=== PATIENT | male | born 1940 | race Caucasian/White ===

== ENCOUNTER 2021-09-24 10:47 | Emergency (ER) | payer MEDICARE ==
[~2021-09-24] VITALS: Ht 185.4 cm; Wt 97.5 kg
[~2021-09-24 10:47] MED LIST: CEPHALEXIN500 MG PO; CHOLESTYRAMINE P4 GM PO; NORCO 5-325 TA1 EACH PO; PRILOSEC20 MG PO
--- NOTE | 2021-09-25 13:06 | EKG ---
[facility] [address] [facility] [place], [place] [address] Signed Sinus rhythm with premature atrial complexes in a pattern of bigeminy Otherwise normal ECG No previous ECGs available Confirmed by KAVON MIRANDA MD ([id number] on 09/25/2021 1:06:46 PM Electronically Signed By: KAVON MIRANDA MD 09/25/21 1306 PATIENT NAME: SRIDEVI VINCENT GABRIELA Electrocardiogram DATE OF : 40 PHYSICIAN: KAVON MIRANDA MD REPORT #: [id number] REPORT IS CONFIDENTIAL AND NOT TO BE RELEASED WITHOUT AUTHORIZATION
== END 2021-09-24 13:52 | disposition home or self-care (01) ==
LOC: ED 10:47
DX: R55 Syncope and collapse (principal); Z88.6 Allergy status to analgesic agent; Z88.8 Allergy status to other drugs, medicaments and biological substances; Z79.899 Other long term (current) drug therapy
CPT/HCPCS: 80053; 83735; 84484; 85025; 93005; 93010; 99284-25

== ENCOUNTER 2023-12-22 10:00 | Day surgery (SDC) | payer MEDICARE ==
[~2023-12-22] VITALS: Ht 185.4 cm; Wt 90.9 kg
[~2023-12-22 10:00] MED LIST changes: +CEFAZOLIN SODIUM 2 GM/20 ML SYR IV SCH; +CLOPIDOGREL75 MG PO; +FLUDROCORTISON0.1 MG PO; +IBLOOD GLUCOSE TEST STRIP 1 EA TEST VI PRN; +LACTATED RINGER'S 1,000 ML IV SCH; +LIDOCAINE HCL 1% 5 ML SDV INJ ONE; +LIDOCAINE HCL 2% 5 ML SDV ONE; +LIPITOR80 MG PO; +NITROSTAT0.3 MG SL; +propofoL 200 MG/20 ML VIAL ONE
[2023-12-22] MEDS ORDERED: IBLOOD GLUCOSE TEST STRIP 1 EA TEST VI PRN (10:15)
[2023-12-22] MEDS ORDERED: NALOXONE HCL 0.4 MG SYR IV PRN (10:15)
[2023-12-22 10:20] VITALS: BP 122/50
--- NOTE | 2023-12-22 11:47 | NUR ---
12/22/23 George7 Elinor Herbert 1140-PATIENT ARRIVED TO ACU ON 6L MASK RR EVEN. PATIENT NONAROUSABLE LAYING LEFT LATERAL. SR HR 60'S IVF INFUSING. ABDOMEN SOFT. PATIENT SLEEPING WITH EYES OPEN A LITTLE
[2023-12-22 12:17] VITALS: BP 100/82
--- NOTE | 2023-12-22 14:00 | OR ---
[facility] [address] [place], [place] [address] Signed DATE OF OPERATION: 12/22/2023 SURGEON: Maude Hook MD PREOPERATIVE DIAGNOSES: Progressive constipation and lower abdominal pain. POSTOPERATIVE DIAGNOSIS: Extensive diverticulosis. PROCEDURE: Total colonoscopy to cecum. ANESTHESIA: Intravenous sedation; propofol infusion, Ena Samuels CRNA. INDICATION: This 83-year-old white man is a patient of Dr. Regina Beck. I was called by his son, Darin Vincent in the recent past noting the patient has had progressive lower abdominal pain and progressive constipation. He has had no blood per rectum. Evaluation showed him to have no palpable mass or other stigmata of malignancy. He had been quite since last colonoscopy and I did recommend colonoscopy be undertaken to assure there is no sign of malignancy, stricture or other abnormality. He is here today for colonoscopy. He understands the risk of bleeding, infection, and perforation. FINDINGS: The prep was surprisingly good considering his underlying extensive diverticulosis. Complete colonoscopy was undertaken of the cecum. He had diverticula extending from the sigmoid more proximally to the right colon as well, most dominantly in the sigmoid and left colon. There was no sign of polyps, colitis, cancer, stricture or other abnormality. DESCRIPTION OF PROCEDURE: The patient was brought to the surgical endoscopy suite and placed in the lateral decubitus position, given intravenous sedation with propofol infusional sedation technique by the silk printer. Full cardiopulmonary monitoring was maintained. Digital rectal examination was normal. An Olympus video colonoscope was passed in the rectum and manipulated throughout the colon noting numerous diverticula of the sigmoid and left colon. The scope was Electronically Signed By: MAUDE HOOK MD 12/22/23 [facility] PATIENT NAME: SRIDEVI VINCENT OPERATIVE REPORT DATE OF : 40 REPORT #: [id number] PHYSICIAN: MAUDE HOOK MD PCP: REGINA BECK MD REPORT IS CONFIDENTIAL AND NOT TO BE RELEASED WITHOUT AUTHORIZATION [facility] [address] [facility] [place], [place] [address] Signed ultimately passed to the cecum. The ileocecal valve and appendiceal orifice were normal. Notably, passage to this point was challenging on the basis of angulation deformity and extensive diverticular changes. The scope was withdrawn from the cecum and careful examination throughout showed diverticula extending from the cecum more proximally but most profound diverticula of the left colon and sigmoid. Retroflexed view of the rectum was normal. Scope was removed and the patient was taken to the recovery room in good condition. CONCLUDING DIAGNOSIS: Diverticulosis, most likely source of constipation problem. PLAN: regimen for him to include MiraLAX 1 scoop p.o. daily and Metamucil powder one scoop p.o. daily. He will return to the ongoing care of Dr. Beck. MD FRANCESCA Long/DEANDRE /[id number] cc: Regina Beck MD Copies: REGINA BECK MD ~ Electronically Signed By: MAUDE HOOK MD 12/22/23 1400 PATIENT NAME: SRIDEVI VINCENT GABRIELA OPERATIVE REPORT DATE OF : 40 REPORT #: [id number] PHYSICIAN: MAUDE HOOK MD PCP: REGINA BECK MD REPORT IS CONFIDENTIAL AND NOT TO BE RELEASED WITHOUT AUTHORIZATION
== END 2023-12-22 12:29 | disposition home or self-care (01) ==
LOC: OPS 10:00 → DS 10:00 → OPS 11:00
PROVIDERS: ATTEND Surgery
PROC: 0DJD8ZZ Inspection of Lower Intestinal Tract, Via Natural or Artificial Opening Endoscopic (ICD-10-PCS; principal; 2023-12-22 11:00)
DX: K59.00 Constipation, unspecified (principal); K57.30 Diverticulosis of large intestine without perforation or abscess without bleeding; I25.2 Old myocardial infarction; H91.13 Presbycusis, bilateral; Z88.8 Allergy status to other drugs, medicaments and biological substances
CPT/HCPCS: J0690; J2001; J2704; J7121